=== PATIENT | female | born 1990 | race Caucasian/White ===

== ENCOUNTER 2022-10-23 15:24 | Emergency (ER) | payer BC, SELFPAY ==
[2022-10-23 16:07] VITALS: BP 138/83; PULSE 70; RESP 18; TEMP 36.4; O2SAT 100
--- NOTE | 2022-10-23 16:56 | ED.ABDPAIN ---
HPI - Abdominal Pain General Chief Complaint: Back Pain/Injury Stated Complaint: Lt Side Abdominal Pain Time Seen by Provider: 10/23/22 16:56 Source: patient and RN notes reviewed Mode of arrival: ambulatory Limitations: no limitations History of Present Illness HPI narrative: 31-year-old female presented for complaint of left flank pain for 5 days. Rates pain 4/10, states it is either dull or sharp and mostly constant. She has taken Tylenol without significant improvement. She endorses a few episodes of diarrhea yesterday and today. She denies associated nausea, vomiting, urinary complaints, fevers or chills. She is currently on her menses. She denies injury or hx renal stones. Related Data Allergies Allergy/AdvReac Type Severity Reaction Status Date / Time No Known Allergies Allergy Verified 10/23/22 15:59 Review of Systems Review of Systems: CONSTITUTIONAL: Denies body aches, fever, chills ENT: Denies rhinorrhea, congestion CARDIOVASCULAR: Denies chest pain, palpitations, or edema. RESPIRATORY: Denies cough or dyspnea. GASTROINTESTINAL: per HPI GENITOURINARY: Denies dysuria, hematuria, or CVA tenderness. SKIN: Denies rash, itching, or wounds. MUSCULOSKELETAL: Denies joint pain, or myalgia. NEUROLOGIC: Denies headache, numbness, tingling, or weakness. All systems reviewed & are unremarkable except as noted in HPI and below PMFSH Comments At time of signature, I have reviewed and agree with nursing past medical, surgical, social and family history unless otherwise noted. Please see nursing chart for further information. There is no relevant family history pertinent to the presenting complaint Exam Narrative: GENERAL: Well-appearing EYES: EOMI. Conjunctivae normal. ENT: Mucous membranes pink and moist. CHEST: Clear to auscultation. HEART: Regular rate and rhythm. No murmur appreciated. Normal peripheral pulses. ABDOMEN: abd soft, nondistended, normal active bowel sounds. Nontender abdomen, no CVA tenderness; No guarding, rebound tenderness, asymmetry EXTREMITIES: Normal range of motion. No edema. SKIN: Warm, dry, no rash. Capillary refill normal. Normal skin turgor. NEURO: Alert and oriented x3. Course Course Emergency Course: Patient is aware of diagnosis, understands and agrees to treatment plan. Anticipatory guidance given. Patient agrees to follow-up as directed and is aware of reasons to seek care at the emergency department. Portions of this record may have been created with voice recognition software Level of Care: Express Care Visit Vital Signs Vital signs: Vital Signs Temperature 97.6 F 10/23/22 16:07 Pulse Rate 70 10/23/22 16:07 Respiratory Rate 18 10/23/22 16:07 Blood Pressure 138/83 10/23/22 16:07 Pulse Oximetry 100 10/23/22 16:07 Oxygen Delivery Room Air 10/23/22 16:07 Temperature 97.6 F 10/23/22 16:07 Pulse Rate 70 10/23/22 16:07 Respiratory Rate 18 10/23/22 16:07 Blood Pressure 138/83 10/23/22 16:07 Pulse Oximetry 100 10/23/22 16:07 Oxygen Delivery Room Air 10/23/22 16:07 MDM - Abdominal Pain MDM Narrative Medical decision making narrative: PE negative. Urine unremarkable, will send for culture. She is on her cycle. Advised close monitoring of symptoms and reviewed the possibility etiology of kidney stone. She is aware to go to the ER for any worsening symptoms or concerns. Advised supportive measures and signs/symptoms to go to the ER. Pt is appropriate for outpt treatment and f/u. Differential Diagnosis Differential diagnosis: Likely abdominal pain, calculus of kidney and constipation Lab Data Labs: Urine Glucose Negative Reference Range: Negative Urine Bilirubin Negative Reference Range: Negative Urine Ketone Negative Refe
== END 2022-10-23 18:00 | disposition home or self-care (01) ==
PROVIDERS: Emergency Provider Nurse Practitioner Family
DX: R10.9 Unspecified abdominal pain (principal)
CPT/HCPCS: 81003; 87086; 87088; 99203; G0463